=== PATIENT | female | born 1975 | race Caucasian/White ===

== ENCOUNTER 2017-04-16 11:15 | Emergency (ER) | payer MEDICAID ==
[2017-04-16] MEDS ORDERED: predniSONE 20 MG TABLET PO STA (12:09)
[2017-04-16] MEDS ORDERED: IPRATROPIUM/ALBUTEROL 3 ML NEB INH STA (12:09)
--- NOTE | 2017-04-16 12:12 | ED Physician Documentation ---
PD HPI URI - Stated complaint Stated Complaint: SOA - Chief complaint Chief Complaint: Resp - History obtained from History obtained from: Patient - History of Present Illness Timing - onset: Other (42-year-old woman who has exercise and allergy induced asthma has had an asthma flare for the last 5 days with a nonproductive cough and chest tightness and wheezing. She is out of her albuterol inhaler. There is no fever.) Review of Systems Constitutional: denies: Fever Nose: denies: Rhinorrhea / runny nose, Congestion Cardiac: denies: Chest pain / pressure, Palpitations Respiratory: reports: Dyspnea, Cough, Wheezing. denies: Hemoptysis GI: denies: Abdominal Pain PD PAST MEDICAL HISTORY - Past Medical History Respiratory: Asthma INSTRUMENT TESTER: Endometriosis - Past Surgical History Past Surgical History: Yes General: Bowel surgery /INSTRUMENT TESTER: Hysterectomy HEENT: Rhinoplasty - Present Medications Home Medications: Ambulatory Orders Medication Instructions Recorded Confirmed Albuterol 04/16/17 Albuterol Sulfate [Proventil Hfa 1 - 2 puffs IH Q4H PRN #1 04/16/17 Inhaler] [email or web address] predniSONE [Deltasone] 60 mg PO DAILY 5 Days 04/16/17 - Allergies Allergies/Adverse Reactions: Allergies Allergy/AdvReac Type Severity Reaction Status Date / Time Sulfa (Sulfonamide Allergy Hives Verified 04/16/17 11:27 Antibiotics) - Social History Does the pt smoke?: No Smoking Status: Never smoker Does the pt drink ETOH?: No Does the pt have substance abuse?: No - Immunizations Immunizations are current?: Yes PD ED PE NORMAL - Vitals Vital signs reviewed: Yes - General General: Alert and oriented X 3, No acute distress - Neck Neck: Supple, no meningeal sign, No bony TTP - Cardiac Cardiac: RRR, No murmur - Respiratory Respiratory: No respiratory distress, Other (Moderate inspiratory and expiratory squeaky wheezes without focal findings) - Abdomen Abdomen: Non tender - Derm Derm: No rash - Neuro Neuro: Alert and oriented X 3, Normal speech - Psych Psych: Normal mood, Normal affect Results - Vitals Vitals: Vital Signs - 24 hr 04/16/17 11:24 Temperature 37.0 C Heart Rate 77 Respiratory 24 Rate Blood Pressure 130/80 O2 Saturation 98 Oxygen O2 Source Room air Departure - Departure Disposition: 01 Home, Self Care Clinical Impression: Asthma Qualifiers: Asthma severity: mild intermittent Asthma complication type: with acute exacerbation Qualified Code(s): J45.21 - Mild intermittent asthma with (acute) exacerbation Condition: Good Record reviewed to determine appropriate education?: Yes Instructions: Asthma Dc Follow-Up: [facility] [Provider Group] Prescriptions: predniSONE [Deltasone] 60 mg PO DAILY 5 Days Albuterol Sulfate [Proventil Hfa Inhaler] 1 - 2 puffs IH Q4H PRN #1 [email or web address] PRN Reason: Cough
[2017-04-16] MEDS ORDERED: IPRATROPIUM/ALBUTEROL 3 ML NEB INH ONE (12:18)
[2017-04-16] MEDS ORDERED: predniSONE 20 MG TABLET ONE (12:26)
[2017-04-16 12:28] VITALS: BP 127/74
== END 2017-04-16 12:31 | disposition home or self-care (01) ==
LOC: ED 11:15
DX: J45.21 Mild intermittent asthma with (acute) exacerbation (principal)
CPT/HCPCS: 94664; 99283; J7512; J7620

== ENCOUNTER 2017-05-12 07:54 | Emergency (ER) | payer MEDICAID ==
[2017-05-12 08:12] VITALS: BP 122/86
--- NOTE | 2017-05-12 09:02 | ED Physician Documentation ---
PD HPI GI BLEED - Stated complaint Stated Complaint: FEMALE - Chief complaint Chief Complaint: Abd Pain - History obtained from History obtained from: Patient - History of Present Illness Timing - onset: Yesterday Timing - details: Intermittant Associated symptoms: BRBPR Contributing factors: Other (Recent asthma exacerbation.) - Additional information Additional information: The patient is a 42-year-old female who presents with bright red blood per rectum that started yesterday and has occurred with each bowel movement since that time. There are streaks of blood on the stool, and blood drips into the commode. She denies any associated rectal pain, but feels that her abdomen is bloated, and she has associated nausea, without vomiting. She denies fever or dysuria. She reports a history of hemorrhoids 19 years ago during . She is status post hysterectomy. She denies constipation, but does report a recent asthma exacerbation that caused significant coughing spells. Review of Systems Constitutional: denies: Fever, Fatigue Nose: denies: Congestion Throat: denies: Sore throat Cardiac: denies: Chest pain / pressure Respiratory: denies: Dyspnea GI: reports: Nausea, Bloody / black stool. 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 - Past Surgical History Past Surgical History: Yes General: Bowel surgery /FLEXOGRAPHIC PRESS PLATE SETTER: Hysterectomy HEENT: Rhinoplasty - Present Medications Home Medications: Ambulatory Orders Medication Instructions Recorded Confirmed Albuterol Sulfate [Proventil Hfa 1 - 2 puffs IH Q4H PRN #1 04/16/17 05/12/17 Inhaler] [email or web address] Hydrocortisone Acetate [Anucort-Hc] 25 mg RC BID #10 supp.rect 05/12/17 - Allergies Allergies/Adverse Reactions: Allergies Allergy/AdvReac Type Severity Reaction Status Date / Time Sulfa (Sulfonamide Allergy Hives Verified 04/16/17 11:27 Antibiotics) - Social History Does the pt smoke?: No Smoking Status: Never smoker Does the pt drink ETOH?: No Does the pt have substance abuse?: No - Immunizations Immunizations are current?: Yes PD ED PE NORMAL - Vitals Vital signs reviewed: Yes (normal) - General General: Alert and oriented X 3, Well developed/nourished - HEENT HEENT: Atraumatic - Neck Neck: No adenopathy, No JVD - Cardiac Cardiac: RRR, No murmur - Respiratory Respiratory: No respiratory distress, Clear bilaterally - Abdomen Abdomen: Soft, Non tender - Female Female : Other (Trace heme-pos stool. No rectal tenderness.) - Back Back: No CVA TTP - Derm Derm: No rash - Extremities Extremities: No edema, No calf tenderness / cord - Neuro Neuro: Alert and oriented X 3, No motor deficit, Normal speech Results - Vitals Vitals: Oxygen O2 Source Room air - Labs Labs: Laboratory Tests 05/12/17 09:08 WBC 7.9 RBC 4.63 Hgb 14.6 Hct 43.0 MCV 92.9 MCH 31.6 H MCHC 34.0 RDW 13.7 Plt Count 214 MPV 9.5 Neut # 6.4 Lymph # 0.8 L [place] # 0.4 Eos # 0.2 Baso # 0.0 Absolute Nucleated RBC 0.00 Nucleated RBC % 0.0 PD MEDICAL DECISION MAKING - ED course Complexity details: reviewed results, considered differential, d/w patient ED course: The patient's presentation is most consistent with bleeding internal hemorrhoid. Her presentation does not suggest diverticular bleeding, and there is no evidence of an external hemorrhoid. CBC is normal. I discussed with her the diagnosis, symptomatic treatment and outpatient follow-up, as well as potentially worrisome signs or symptoms that should prompt reevaluation in the emergency department. She is being discharged with a prescription for Anusol HC. Departure - Departure Disposition: 01 Home, Self Care Clinical Impression: Rectal bleeding, Internal hemorrhoid, bleeding Condition: Stable Instructions: ED Hemorrhoids Prescriptions: Hydrocortisone Acetate [Anucort-Hc] 25 mg RC BID #10 supp.rect Comments: Wash your anal area with warm soapy water at least twice daily. Apply Anusol HC twice daily for 5 days. Follow-up with primary physician within 2 weeks if possible. Call to schedule appointment. Return to the emergency department if you develop increasing bleeding, increasing abdominal pain, or otherwise worsening symptoms. Discharge Date/Time: 05/12/17 10:10
[2017-05-12 09:28] LABS: BASOPHILS % (AUTO) 0.6 %; EOSINOPHILS # (AUTO) 0.2 10^3/uL (0.0-0.7); EOSINOPHILS % (AUTO) 3.1 %; HGB - HEMOGLOBIN 14.6 g/dL (12.0-16.0); LYMPHOCYTES # (AUTO) 0.8 10^3/uL (1.5-3.5); LYMPHOCYTES % (AUTO) 10.2 %; MEAN CORPUSCULAR HEMOGLOBIN 31.6 pg (27.0-31.0); MEAN CORPUSCULAR VOLUME 92.9 fL (81.0-99.0); MEAN PLATELET VOLUME 9.5 fL (7.9-10.8); MONOCYTES # (AUTO) 0.4 10^3/uL (0.0-1.0); MONOCYTES % (AUTO) 5.2 %; NEUTROPHILS # (AUTO) 6.4 10^3/uL (1.5-6.6); NEUTROPHILS % (AUTO) 80.9 %; RED BLOOD COUNT 4.63 10^6/uL (4.20-5.40); RED CELL DISTRIBUTION WIDTH 13.7 % (12.0-15.0); UNCORRECTED WHITE BLOOD COUNT 7.9 x10^3/uL; WHITE BLOOD COUNT 7.9 x10^3/uL (4.8-10.8)
== END 2017-05-12 10:10 | disposition home or self-care (01) ==
LOC: ED 07:54
DX: K62.5 Hemorrhage of anus and rectum (principal); K64.8 Other hemorrhoids
CPT/HCPCS: 36415; 85025; 99283